=== PATIENT | male | born 1940 | race Caucasian/White ===

== ENCOUNTER 2018-07-22 18:05 | Emergency (ER) | payer MEDICARE, OTHER ==
[~2018-07-22] VITALS: Ht 162.6 cm; Wt 68.0 kg
[~2018-07-22 18:05] MED LIST: ACET500C5 PO
[2018-07-22 18:08] VITALS: BP 128/66; PULSE 74; RESP 16; Ht 162.6 cm; Wt 68.0 kg
[2018-07-22] MEDS ORDERED: IBUP-1561 PO (20:35)
[2018-07-22] MEDS ORDERED: TRAM50TA2 PO (20:35)
--- NOTE | 2018-07-22 20:41 | ERD ---
ER Documentation Chief Complaint Chief Complaint pt bib self with c/o right knee pain for years HPI 78-year-old male presents with right knee pain for "several years ". Denies any history of recent trauma. Denies any fevers, redness, cough, shortness of breath or chest pain, additional symptoms. He was referred by an urgent care for further evaluation after receiving an injection of presumably Toradol. ROS All systems reviewed and are negative except as per history of present illness. Medications Home Meds Active Scripts Ibuprofen* (Motrin*) 400 Mg Tab, 400 MG PO Q6, #30 TAB Prov:ANTIONE BRANDON MD 07/22/18 Tramadol HCl (Tramadol HCl) 50 Mg Tablet, 50 MG PO Q4 PRN for PAIN, #20 TAB Prov:ANTIONE BRANDON MD 07/22/18 Acetaminophen* (Tylophen*) 500 Mg Capsule, 1 CAP PO Q6H PRN for PAIN AND OR ELEVATED TEMP, #20 CAP Prov:JESSENIA GALLAGHER PA-C 08/25/15 Allergies Allergies: Coded Allergies: No Known Allergy (Unverified , 08/25/15) PMhx/Soc History of Surgery: Yes (TESTICULAR SURGERY) Hx Neurological Disorder: No Hx Respiratory Disorders: No Hx Cardiac Disorders: No Hx Psychiatric Problems: No Hx Miscellaneous Medical Probl: Yes (DIABETES) Hx Alcohol Use: Yes Hx Substance Use: No Hx Tobacco Use: No Smoking Status: Never smoker FmHx Family History: No diabetes, No coronary disease, No other Physical Exam Vitals Vital Signs Date Temp Pulse Resp B/P (MAP) Pulse Ox O2 O2 Flow FiO2 Time Delivery Rate 07/22/18 98.3 74 16 128/66 98 18:08 (86) Physical Exam Const: No acute distress Head: Atraumatic Eyes: Normal Conjunctiva ENT: Normal External Ears, Nose and Mouth. Neck: Full range of motion. No meningismus. Resp: Clear to auscultation bilaterally Cardio: Regular rate and rhythm, no murmurs Abd: Soft, non tender, non distended. Normal bowel sounds Skin: No petechiae or rashes Back: No midline or flank tenderness Ext: No cyanosis, or edema right knee with significant synovitis. No warmth, erythema or effusion. No deformities. No calf swelling or Homans sign. Right lower extremity neurovascular intact. Neur: Awake and alert Psych: Normal Mood and Affect Procedures/MDM X-ray right knee 3V Interpreted by me: Bones: No fracture Joints: No dislocation Foreign body: None impression-severe degenerative changes of bilateral compartments of right knee. Patient is placed in a right knee immobilizer. Patient was neurovascular intact after knee immobilizer. Patient presents with chronic right knee pain with severe degenerative changes but is no signs of fracture, dislocation, septic arthritis, ischemia, deficits. He has no evidence to suggest DVT. Will be discharged home with prescription of ibuprofen, tramadol, recommendations for orthopedic evaluation. He was advised he may need authorization from primary doctor for orthopedist visit. Departure Diagnosis: Primary Impression: Knee pain Chronicity: acute Laterality: right Qualified Codes: M25.561 - Pain in right knee Condition: Stable Patient Instructions: Osteoarthritis Referrals: AARON HILL MD [facility] Hours: Sat-Sat 9:00 AM - 5:00 PM Additional Instructions: Severe arthritis seen on x-ray. Recommend orthopedic evaluation. May need authorization from primary doctor for orthopedist referral. Return for fevers, redness, new worsening symptoms. ANTIONE BRANDON MD Jul 22, 2018 20:41
== END 2018-07-22 21:23 | disposition home or self-care (01) ==
LOC: FTE 18:05
DX: M25.561 Pain in right knee (principal); E11.9 Type 2 diabetes mellitus without complications
CPT/HCPCS: 73562